=== PATIENT | male | born 1955 | race Caucasian/White ===

== ENCOUNTER 2021-03-27 20:31 | Observation (INO) | payer OTHER ==
[~2021-03-27] VITALS: Ht 180.3 cm; Wt 102.5 kg
--- NOTE | 2021-03-27 21:13 | NUR ---
PT HERE FROM [facility] AFTER INJURY TO RIGHT FOREARM WITH CIRCULAR SAW. PT WAS ADVISED THAT HE WAS TO BE TRANSFERED TO [facility] DUE TO TRAUMA. PT REFUSED TRANSFER DUE TO INSURANCE. PT LEFT [facility] AND CAME HERE. PTS ARM HAS TOURNIQET IN PLACE AND PRESSURE BANDAGE. BLEEDING IS CONTROLLED AND CMS INTACT. MD TO CONSULT WITH VASCULAR SURGERY. PIV PLACED AND RECORDS REQUESTED. SPOUSE AT BEDSIDE
[2021-03-27] MEDS ORDERED: CEFAZOLIN PMX 1GM/50ML 50 ML ONE (21:42)
[2021-03-27] MEDS ORDERED: CEFAZOLIN PMX 1GM/50ML 50 ML IV ONE (22:00)
[2021-03-27] MEDS ORDERED: MORPHINE SULFATE 4 MG/ML, 1ML ONE ×2 (22:28→23:28)
[2021-03-27] MEDS ORDERED: ONDANSETRON 2MG/ML, 2ML ONE (22:28)
[2021-03-27] MEDS ORDERED: ONDANSETRON 2MG/ML, 2ML IVPush ONE (22:30)
[2021-03-27] MEDS: MORPHINE SULFATE 4 MG/ML, 1ML IVPush PRN ×2 (22:33→23:30)
--- NOTE | 2021-03-27 22:39 | NUR ---
PT MEDICATED FOR PAIN AND PLACED ON 2 L O2 DUE TO DROPPING SATS AFTER PAIN MEDS WERE GIVEN
--- NOTE | 2021-03-27 22:46 | NUR ---
VSS. PT HAS GOOD PULSES IN RIGHT WRIST. WILL CONTINUE TO MONITOR
--- NOTE | 2021-03-27 23:11 | NUR ---
PT RESTING. VSS. HAND WARM AND PULSES INTACT. SPOUSE AT BEDSIDE
--- NOTE | 2021-03-27 23:34 | NUR ---
PT REMEDICATED FOR PAIN. VSS. HAND WARM AND PULSES INTACT. SPOUSE AT BEDSIDE
--- NOTE | 2021-03-28 00:35 | NUR ---
PAIN HAS IMPROVED. VSS. PULSES GOOD AND EXTREMITY WARM. SPOUSE AT BEDSIDE
--- NOTE | 2021-03-28 00:54 | NUR ---
Note elviaone in EDM - 03/28/21 at 0145 by OK Covering primary for break. Pt resting comfortably, RR equal and unlabored. Vascular remains intact. VSS.
--- NOTE | 2021-03-28 00:54 | NUR ---
Covering primary for break, resting comfortably. No change in CSMTP. AIDET provided. VSS
[2021-03-28] MEDS ORDERED: [UNRECOGNIZED DRUG - OTHER] PO (01:44)
[2021-03-28] MEDS ORDERED: DIPHENHYDRAMINE 25 MG CAPSULE PO PRN (02:00)
[2021-03-28] MEDS ORDERED: ONDANSETRON 2MG/ML, 2ML IV PRN (02:00)
[2021-03-28] MEDS ORDERED: MAGNESIUM HYDROXIDE 8%, 30ML UDC PO PRN (02:00)
[2021-03-28] MEDS ORDERED: OXYcodone/APAP 5/325MG TABLET PO PRN (02:00)
[2021-03-28] MEDS ORDERED: HYDROcodone/APAP 7.5-325MG/15ML UDC PO PRN (02:00)
[2021-03-28 02:48] VITALS: BP 155/99
[2021-03-28 04:32] LABS: ALANINE AMINOTRANSFERASE 34 U/L (12-78); ALBUMIN 3.5 g/dL (3.4-5.0); ANION GAP 7 mmol/L (5-15); CALCIUM 8.1 mg/dL (8.5-10.1); CHLORIDE 107 mmol/L (98-107); CREATININE 0.95 mg/dL (0.7-1.3)
[2021-03-28 04:33] LABS: INTERNATIONAL NORMALIZED RATIO 1.06 (0.93-1.1); PROTHROMBIN TIME 11.3 Seconds (9.6-11.5)
[2021-03-28 04:35] LABS: ALKALINE PHOSPHATASE 67 U/L (45-117); BILIRUBIN,TOTAL 0.6 mg/dL (0.2-1.0); TOTAL PROTEIN 6.8 g/dL (6.4-8.2)
[2021-03-28] MEDS: CEFAZOLIN PMX 2GM/50ML 50 ML IVPB SCH ×2 (06:09→13:56)
[2021-03-28 07:13] VITALS: BP 159/90
[2021-03-28] MEDS ORDERED: BUPIVACAINE/PF 0.5% ONE (07:37)
[2021-03-28] MEDS ORDERED: PAPAVERINE 30 MG/ML, 2ML ONE (07:37)
[2021-03-28] MEDS ORDERED: THROMBIN 5,000 UNIT VIAL TP ONE (07:38)
[2021-03-28] MEDS ORDERED: PROTAMINE SULFATE 10 MG/ML, 25ML ONE (07:38)
[2021-03-28] MEDS ORDERED: EPINEPHRINE 1 MG/ML, 1ML ONE (07:38)
[2021-03-28] MEDS ORDERED: HEPARIN 1,000 UNITS/ML, 10ML ONE (07:38)
[2021-03-28] MEDS ORDERED: OMNIPAQUE 180 MG/ML, 20ML VIAL ONE (07:39)
[2021-03-28] MEDS ORDERED: SODIUM CHLORIDE FLUSH 10ML SYR IVF SCH (09:00)
[2021-03-28] MEDS ORDERED: LABETALOL 5MG/ML, 20ML IV PRN (10:00)
[2021-03-28] MEDS ORDERED: hydrALAzine 20 MG/ML, 1ML IV PRN (10:00)
[2021-03-28] MEDS ORDERED: ACETAMINOPHEN 325 MG TABLET PO PRN (10:00)
[2021-03-28] MEDS ORDERED: OXYcodone 5 MG/5 ML ORAL.SOL UDC PO PRN (10:00)
[2021-03-28] MEDS ORDERED: PROMETHAZINE 25 MG/ML, 1ML IVPush PRN (10:00)
[2021-03-28] MEDS ORDERED: HYDROmorphone 1 MG/ML, 1ML INJ IVPush PRN (10:00)
[2021-03-28] MEDS ORDERED: ONDANSETRON 2MG/ML, 2ML IVPush PRN (10:00)
[2021-03-28] MEDS ORDERED: EPHEDRINE 50 MG/ML, 1ML IVPush PRN (10:00)
[2021-03-28] MEDS ORDERED: ENOXAPARIN 40 MG/0.4 ML SQ SCH (12:00)
[2021-03-28 13:15] VITALS: BP 149/83
[2021-03-28] MEDS ORDERED: MIDAZOLAM 1 MG/ML, 2ML ONE (15:35)
[2021-03-28] MEDS ORDERED: FENTANYL PF 100 MCG/2ML ONE ×2 (15:35→17:40)
[2021-03-28] MEDS ORDERED: HYDROmorphone 1 MG/ML, 1ML INJ ONE (15:56)
[2021-03-28] MEDS ORDERED: LIDOCAINE-MPF 2% ,5ML ONE (16:00)
[2021-03-28] MEDS ORDERED: CEFAZOLIN 1,000 MG ONE (16:00)
[2021-03-28] MEDS ORDERED: PROPOFOL 10 MG/ML, 20ML ONE (16:00)
[2021-03-28] MEDS ORDERED: KETOROLAC 30 MG/1 ML ONE (16:00)
[2021-03-28] MEDS ORDERED: ONDANSETRON 2MG/ML, 2ML ONE (16:00)
[2021-03-28] MEDS ORDERED: DEXAMETHASONE 4 MG/ML, 5ML ONE (16:00)
[2021-03-28] MEDS ORDERED: OXYcodone 5 MG/5 ML ORAL.SOL UDC ONE (17:41)
[2021-03-28] MEDS: FENTANYL PF 100 MCG/2ML IV PRN ×2 (17:45→17:50)
[2021-03-28 18:12] VITALS: BP 153/92
[2021-03-28] MEDS ORDERED: HYDR-2214 PO (19:58)
[2021-03-28] MEDS ORDERED: CEPH750C9 PO (20:00)
== END 2021-03-28 21:26 | disposition home or self-care (01) ==
LOC: ED 03-28 02:00 → EDIP 03-28 02:09 → 4NE 03-28 02:34
PROVIDERS: ADMIT Surgery; ATTEND Surgery
DX: S51.831A Puncture wound without foreign body of right forearm, initial encounter (principal); Z20.822 Contact with and (suspected) exposure to COVID-19; S51.811A Laceration without foreign body of right forearm, initial encounter; W31.89XA Contact with other specified machinery, initial encounter; Y93.89 Activity, other specified; Y92.89 Other specified places as the place of occurrence of the external cause
CPT/HCPCS: 10140; 35206; 36415; 80053; 85610; 85730; 87635; 93005; 96365; 96366; 96375; 96376; 99291; C1757; G0378; J0690; J1100; J1170; J1644; J1885; J2250; J2270; J2405; J2704; J3010; J3490; J0171; J2720; Q9965; J2440